=== PATIENT | male | born 1960 | race Two or more races ===

== ENCOUNTER 2020-07-26 10:38 | Day surgery (SDC) | payer OTHER ==
[~2020-07-26] VITALS: Ht 170.2 cm; Wt 94.3 kg
[2020-07-26] MEDS ORDERED: IOHEXOL-350 100 ML VIAL IV ONE ×2 (12:47→13:34)
[2020-07-26] MEDS ORDERED: IV NS 0.9% 250 ML IV ONE ×2 (12:48→13:34)
[2020-07-26] MEDS ORDERED: CT SWABBABLE VALVE TRANS SET 1 EA INFUS.SET MC ONE ×2 (12:48→13:34)
[2020-07-26] MEDS ORDERED: METOPROLOL TARTRATE INJ 5 MG/5 ML AMPUL IVP ONE (13:00)
[2020-07-26] MEDS ORDERED: NITROGLYCERIN 0.4 MG/TAB BOTTLE SL ONE (13:00)
[2020-07-26] MEDS: METOPROLOL TARTRATE INJ 5 MG/5 ML AMPUL IVP PRN ×8 (13:00→13:45)
[2020-07-26] MEDS ORDERED: METOPROLOL TARTRATE INJ 5 MG/5 ML AMPUL ONE ×3 (13:04→13:14)
[2020-07-26 13:45] VITALS: BP 151/93
--- NOTE | 2020-07-26 14:01 | NUR ---
Report given to EMS for THIAGO, patient is transported it back to [facility] via ambulance. Patient was discharged in stable condition and denies any discomfort.
== END 2020-07-26 14:05 | disposition short-term general hospital (02) ==
LOC: CARD 10:38
PROVIDERS: ATTEND Internal Medicine Interventional Cardiology
DX: I25.10 Atherosclerotic heart disease of native coronary artery without angina pectoris (principal); I51.7 Cardiomegaly; I77.810 Thoracic aortic ectasia; J43.8 Other emphysema
CPT/HCPCS: 75574; J3490 ×4; J7050 ×2; Q9967 ×2